=== PATIENT | female | born 1950 | race Caucasian/White ===

== ENCOUNTER → 2022-02-05 12:22 | Outpatient (CLI) | payer MEDICARE, SELFPAY ==
--- NOTE | ~2022-02-05 | MM_ITS ---
EXAMINATION: MM screening alpa BI w jack HISTORY: Screening mammogram TECHNIQUE: Craniocaudal and mediolateral oblique 3-D tomosynthesis images were obtained and synthetic 2-D images were generated. CAD analysis was submitted and interpreted. COMPARISON: 01/31/2019, 06/30/2016, 04/27/2049 bilateral screening mammogram examinations BREAST PARENCHYMAL COMPOSITION: There are scattered areas of fibroglandular density. FINDINGS: There is no evidence of suspicious mass, calcification, or architectural distortion to sugg est malignancy in either breast. There has been no suspicious interval change. IMPRESSION: 1. No mammographic evidence of malignancy. 2. Recommend routine screening mammography in one year. BI-RADS Category 1: Negative Reviewed, dictated and finalized at location A. ETING REP
--- NOTE | ~2022-02-05 | DEXA_ITS ---
Bone Density Report Name: JOEY TOBIN Age: 71 Sex: Female Ethnicity: White Date of : 1950 Indication: postmenopausal; screening for osteoporosis; height loss; Referring Provider: Akosua, Blanca Study: Bone densitometry was performed. Exam Date: February 05, 2022 Accession number: [id number] Bone Density: Region BMD T-score Z-score Classification AP Spine (L2, L3, L4) 1.210 1.2 3.4 Normal Femoral Neck (Right) 0.776 -0.7 1.1 Normal Total Hip (Right) 1.093 1.2 2.7 Normal World Health Organization criteria for BMD impression classify patients as: Normal (T-score at or above -1.0), Osteopenia (T-score between -1.0 and -2.5), or Osteoporosis (T-score at or below -2.5). 10-year Fracture Risk: FRAX not reported because: All T-scores for Spine Total, Hip Total, Femoral Neck at or above -1.0 Previous Exams: Region Exam Age BMD T-score BMD Change BMD Change Date g/cm2 vs Baseline vs Previous AP Spine(L2, L3, L4) 02/05/2022 71 1.210 1.2 0.033 -0.002 01/31/2019 68 1.212 1.2 0.035* 0.027* 04/27/2014 64 1.184 1.0 0.007 0.014 02/27/2009 58 1.171 0.8 -0.007 -0.022 02/22/2007 56 1.193 1.0 0.016 0.016 06/18/2004 54 1.177 0.9 Total Hip(Right) 02/05/2022 71 1.093 1.2 0.100 0.065 01/31/2019 68 1.028 0.7 0.035* 0.056* 04/27/2014 64 0.972 0.2 -0.020 -0.061* 02/27/2009 58 1.034 0.8 0.041* 0.044* 02/22/2007 56 0.990 0.4 -0.003 -0.003 06/18/2004 54 0.993 0.4 *Denotes significance at 95% confidence level, LSC for AP Spine = 0.022 g/cm2, LSC for Total Hip = 0.027 g/cm2 Clinical Information Provided by Patient: Patient maximum height was 62 Menopause Age: 47 Drinks caffeinated beverages Onset of menses at age 13 Number of children 2 Impression: The patient has normal bone mass. No significant bone loss was observed. Discussion: BONE DENSITY IS ABOVE THE MINIMUM DESIRABLE LEVEL AT ALL SKELETAL SITES TESTED. This patient?s bone mineral density is above the minimum desirable level (T-score -1.0 or better) at all sites measured. The patient should follow a healthful lifestyle (good nutrition with adequate calcium and vitamin D, and appropriate weight-bearing exercise). Follow-Up: Consider repeating this study in 5 years or sooner if there is some new clinical indication. R
== END ==
PROVIDERS: PCP Family Medicine; Visit Provider Nurse Practitioner
DX: Z12.31 Encounter for screening mammogram for malignant neoplasm of breast (principal); Z78.0 Asymptomatic menopausal state
CPT/HCPCS: 77063; 77067; 77080

== ENCOUNTER 2022-12-22 13:20 | Emergency (ER) | payer MEDICARE, SELFPAY ==
[2022-12-22 13:30] VITALS: BP 129/81; PULSE 110; RESP 16; TEMP 36.3; O2SAT 97
--- NOTE | 2022-12-22 14:28 | ED.EAR ---
HPI - Ear Problem General Chief complaint: Ear Stated complaint: Right Ear Problem Source: patient Mode of arrival: ambulatory Limitations: no limitations History of Present Illness HPI Narrative: Patient presents for evaluation of which she believes to be a cerumen impaction on the right. She has noted some discomfort in the right ear with hearing loss on the right side for the last week. She denies any tinnitus or drainage from the ear. She has required irrigation of the ears in the past when treated for the same symptoms. She did attempt to irrigate the ear at home with water before coming in. Related Data Allergies Allergy/AdvReac Type Severity Reaction Status Date / Time No Known Allergies Allergy Verified 12/22/22 13:22 Review of Systems Review of Systems: CONSTITUTIONAL: Denies fever, chills, or sweats. EYES: Denies visual changes, redness, or discharge. ENT: Reports right sided ear discomfort and hearing loss. Denies rhinorrhea, congestion, or sore throat CARDIOVASCULAR: Denies chest pain, palpitations, or edema. RESPIRATORY: Denies cough or dyspnea. GASTROINTESTINAL: Denies abdominal pain, nausea, vomiting, or diarrhea. GENITOURINARY: Denies dysuria or hematuria. SKIN: Denies rash or itching. MUSCULOSKELETAL: Denies back pain, joint pain, or myalgia. NEUROLOGIC: Denies headache, numbness, dizziness, or weakness. PSYCHIATRIC: Denies anxiety or depression. [facility] Past Medical History Medical History BMI 33.0-33.9,adult BMI 34.0-34.9,adult BMI 35.0-35.9,adult Hypertension Surgical History Surgical History History of knee surgery Family History Family History Father Hypertension Family history of elevated blood lipids Cerebrovascular accident Mother Sibling History of cancer of gall bladder Sibling No problems noted. 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 Gender identity (if verbalized by the patient): Female Exam Narrative: GENERAL: Well-appearing, well-nourished, and in no acute distress. HEAD: Normocephalic, atraumatic. EYES: PERRLA and EOMI. ENT: Nares clear, no rhinorrhea or epistaxis. Mucous membranes moist. Oropharynx without tonsillar hypertrophy exudate or other lesions. Bilateral ear canals are ceruminous NECK: Supple. No adenopathy or masses. No carotid bruits or JVD CHEST: Clear to auscultation. No respiratory distress. No wheezes rales or rhonchi HEART: Regular rate and rhythm. No murmur heard. Normal peripheral pulses. ABDOMEN: Soft, nontender, nondistended, normal active bowel sounds. EXTREMITIES: Normal range of motion. No edema. SKIN: Warm, dry, no rash. NEURO: No focal deficits. Alert and oriented x3. PSYCH: Normal mood and affect. Course Course Emergency Course: This is a 72-year-old female who presented for evaluation of right ear discomfort and decreased hearing. On physical exam she has evidence of cerumen impaction. Ears were irrigated and pt tolerated well. Follow up with PCP. Will dc with ofloxacin due to erythema in bilateral canals. Go to the ER for worsening symptoms. Pt in agreement with plan of care. Level of Care: Express Care Visit Vital Signs Vital signs: Vital Signs Temperature 36.3 C L 12/22/22 13:30 Pulse Rate 110 H 12/22/22 13:30 Respiratory Rate 16 12/22/22 13:30 Blood Pressure 129/81 12/22/22 13:30 Pulse
== END 2022-12-22 14:30 | disposition home or self-care (01) ==
PROVIDERS: Emergency Provider Nurse Practitioner; PCP Family Medicine
DX: H61.23 Impacted cerumen, bilateral (principal); Z87.891 Personal history of nicotine dependence; I10 Essential (primary) hypertension
CPT/HCPCS: 69210; 99213; G0463

== ENCOUNTER 2024-02-18 12:29 | Emergency (ER) | payer MEDICARE, SELFPAY ==
[2024-02-18 12:37] VITALS: BP 120/71; PULSE 85; RESP 16; TEMP 36.3; O2SAT 99
--- NOTE | 2024-02-18 12:39 | ED.EAR ---
HPI - Ear Problem General Chief complaint: Ear Stated complaint: Right Ear Problem Time Seen by Provider: 02/18/24 12:39 Source: patient Mode of arrival: ambulatory Limitations: no limitations History of Present Illness HPI Narrative: 73-year-old female presents with complaint of decreased hearing to bilateral ears, worse to right ear. Reports history of wax impaction. Has been using Debrox with no relief of symptoms. All systems reviewed and negative except as noted above. Related Data Allergies Allergy/AdvReac Type Severity Reaction Status Date / Time No Known Allergies Allergy Verified 02/18/24 12:39 Review of Systems Review of Systems: CONSTITUTIONAL: Denies fever, chills, or sweats. EYES: Denies visual changes, redness, or discharge. ENT: Denies rhinorrhea, congestion, sore throat, or otalgia. Reports decreased hearing to bilateral ears with clogged sensation. CARDIOVASCULAR: Denies chest pain, palpitations, or edema. RESPIRATORY: Denies cough or dyspnea. GASTROINTESTINAL: Denies abdominal pain, nausea, vomiting, or diarrhea. GENITOURINARY: Denies dysuria or hematuria. SKIN: Denies rash or itching. MUSCULOSKELETAL: Denies back pain, joint pain, or myalgia. NEUROLOGIC: Denies headache, numbness, or weakness. PSYCHIATRIC: Denies anxiety or depression. All other systems reviewed are negative, except as documented in HPI. [facility] Past Medical History Medical History Cervicalgia Dizziness Essential (primary) hypertension Eustachian tube dysfunction Hyperlipidemia Hypertension Impacted cerumen Knee pain Surgical History Surgical History History of knee surgery Family History Family History Father Hypertension Family history of elevated blood lipids Cerebrovascular accident Mother Sibling History of cancer of gall bladder Sibling No problems noted. 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 Gender identity (if verbalized by the patient): Female Comments At time of signature, agree with nursing past medical, surgical, social and family history. There is no relevant family history pertinent to the presenting complaint. Exam Narrative: GENERAL: This is a well-nourished, well-developed patient, in no apparent distress. HEAD: normocephalic, atraumatic. EYES: PERRL. Sclera clear/white. Vision is grossly intact. EARS: External ears normal, Cerumen impaction to bilateral ear canals, after irrigation TMs normal without perforation. Hearing grossly intact. NOSE: External nose normal NECK: Neck supple, non-tender without lymphadenopathy, masses or thyromegaly. CARDIOVASCULAR: Regular rate and rhythm without murmurs, gallops, or rubs. RESPIRATORY: Clear to auscultation. Breath sounds equal bilaterally. No wheezes, rales, or rhonchi. SKIN: warm, Dry, intact with no suspicious lesions or rash, good texture and turgor. NEURO: awake, alert, and oriented to person, place and time. There were no obvious focal neurologic abnormalities. EXTREMITIES: No joint tenderness, effusion, or edema noted. Course Course Level of Care: Express Care Visit Vital Signs Vital signs: Vital Signs Temperature 36.3 C L 02/18/24 12:37 Pulse Rate 85 02/18/24 12:37 Respiratory Rate 16 02/18/24 12:37 Blood Pressure 120/71 02/18/24 12:37 Pulse Oximetry 99 02/18/24 12:37 Oxygen Delivery Room Air 02/18/24 12:37 Temperature 36.3 C L 02/18/24 12:48 Pulse Rate 85 02/18/24 12:48 Respiratory Rate 16 02/18/24 12:48 Blood Pressure 120/71 02/18/24 12:48 Pulse Oximetry 99 02/18/24 12:48 Oxygen Delivery Room Air 02/18/24 12:48 reviewed Procedures Ear Wax Removal Both Ears: Ear Wax Removal Date: 02/18/24 Ear Wax Removal Time: 12:40 Cerumenolytic Used: other ( warm water) Results: Re-examined: cerumen removed completely TM Examination: TM(s) intact, normal appearance Ear Canal Exam: atraumatic Patient Tolerated Procedure: well Complications: no problems Technique: ear canal irrigated Medical Decision Making MDM Narrative Medical decision making narrative: Patient is aware of diagnosis, understands and agrees to treatment plan. Anticipatory guidance given. Patient agrees to follow-up as directed and is aware of reasons to seek care at the emergency department. Portions of this record may have been created with voice recognition software bilateral ear canals irrigated with warm water without complication. Cerumen completely removed and patient voiced that her hearing had improved. Vital Signs Vital Signs: Vital Signs Temperature 36.3 C L 02/18/24 12:37 Pulse Rate 85 02/18/24 12:37 Respiratory Rate 16 02/18/24 12:37 Blood Pressure 120/71 02/18/24 12:37 Pulse Oximetry 99 02/18/24 12:37 Oxygen Delivery Room Air 02/18/24 12:37 Temperature 36.3 C L 02/18/24 12:48 Pulse Rate 85 02/18/24 12:48 Respiratory Rate 16 02/18/24 12:48 Blood Pressure 120/71 02/18/24 12:48 Pulse Oximetry 99 02/18/24 12:48 Oxygen Delivery Room Air 02/18/24 12:48 Discharge Plan Discharge Clinical Impression: Impacted cerumen of both ears Patient Disposition: Home, Self-Care Condition: Stable Instructions: General Patient Instructions Additional Instructions: Cerumen was irrigated from both of her ears using warm water today. Your ear canals and eardrums were normal, no signs of infection. Follow-up with your primary care physician as needed. Prescriptions: No Action cholecalciferol (vitamin D3) 1,250 mcg (50,000 unit) capsule 1,250 mcg PO WEEKLY Qty: 8 0RF rosuvastatin 20 mg tablet 20 mg PO DAILY Qty: 90 1RF lisinopril-hydrochlorothiazide 20-12.5 mg tablet 1 tablet PO BID Qty: 180 1RF Follow-up/Referrals: Anderson Marley MD [Primary Care Provider] - Time of Disposition: 12:55
[2024-02-18 12:48] VITALS: BP 120/71; PULSE 85; RESP 16; TEMP 36.3; O2SAT 99
== END 2024-02-18 12:55 | disposition home or self-care (01) ==
PROVIDERS: Emergency Provider Nurse Practitioner Family; PCP Family Medicine
DX: H61.23 Impacted cerumen, bilateral (principal); Z87.891 Personal history of nicotine dependence; I10 Essential (primary) hypertension; E78.5 Hyperlipidemia, unspecified
CPT/HCPCS: 69209; 99212; G0463

== ENCOUNTER 2024-04-18 14:34 | Emergency (ER) | payer MEDICARE, SELFPAY ==
--- NOTE | ~2024-04-18 | XR_ITS ---
HISTORY: no injury. Pain dorsal aspect foot. COMPARISON: None TECHNIQUE: 4 views of the left foot were performed FINDINGS: No acute fracture or dislocation is appreciated. Significant degenerative disease is noted. The base of the fifth metatarsal is intact. Large calcaneal spur is noted. Soft tissue swelling of the dorsum of the forefoot. IMPRESSION: Soft tissue swelling, without underlying fracture Reviewed, dictated and finalized at location A. [place] ATTORNEY
[2024-04-18 14:40] VITALS: BP 131/66; PULSE 100; RESP 16; TEMP 37; O2SAT 95
--- NOTE | 2024-04-18 14:46 | ED.GENADULT ---
HPI - General Adult General Chief complaint: Extremity Problem,Nontraumatic Stated complaint: left foot pain Time Seen by Provider: 04/18/24 14:47 Source: patient, RN notes reviewed and old records reviewed Mode of arrival: ambulatory Limitations: no limitations History of Present Illness HPI narrative: 74 year old female presents to [facility] care with complaints of pain to the dorsal area of her left foot which is worse with weight bearing for the past 5 days with increased pain for 3 days with no known injury.Patient reports tht she has been taking Tylenol and Ibuprofen for her discomfort with minimal relief. Patient is ambulating with limping gait. MD complaint: left dorsal foot pain Onset (ago): day(s) (5 with increas in past 3 days with no known injury.) Location: left and lower extremity (dorsal foot) Severity scale (1-10): 8 Quality: aching Exacerbating factors: other (mbulation and weight bearing) Treatments prior to arrival: NSAID and other (Tylenol) Related Data Allergies Allergy/AdvReac Type Severity Reaction Status Date / Time No Known Allergies Allergy Verified 04/18/24 14:45 Review of Systems Review of Systems: CONSTITUTIONAL: Denies fever, chills, or sweats. EYES: Denies visual changes, redness, or discharge. ENT: Denies rhinorrhea, congestion, sore throat, or otalgia. CARDIOVASCULAR: Denies chest pain, palpitations, or edema. RESPIRATORY: Denies cough or dyspnea. GASTROINTESTINAL: Denies abdominal pain, nausea, vomiting, or diarrhea. GENITOURINARY: Denies dysuria or hematuria. SKIN: Denies rash or itching. MUSCULOSKELETAL: Denies back pain,positive for pain to dorsal left foot , or myalgia. NEUROLOGIC: Denies headache, numbness, or weakness. PSYCHIATRIC: history of anxiety or depression. All systems reviewed & are unremarkable except as noted in HPI and below PMFSH Past Medical History Medical History Hypertension Eustachian tube dysfunction Dizziness Impacted cerumen Knee pain Cervicalgia Essential (primary) hypertension Hyperlipidemia Surgical History Surgical History (Updated 04/19/24 @ 12:12 by Tami Rainey NP) Status post right foot surgery H/O cervical spine surgery Status post total replacement of left hip History of total left knee replacement History of knee surgery Family History Family History Father Hypertension Family history of elevated blood lipids Cerebrovascular accident Mother Sibling History of cancer of gall bladder Sibling No problems noted. 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 Gender identity (if verbalized by the patient): Female Comments At time of signature, agree with nursing past medical, surgical, social and family history. There is no relevant family history pertinent to the presenting complaint Exam Narrative: GENERAL: Well-appearing, well-nourished, and in no acute distress. HEAD: Normocephalic, atraumatic. EYES: PERRLA and EOMI. ENT: Nares clear, no rhinorrhea or epistaxis. Mucous membranes moist.TM's normal throat pink with no swelling NECK: Supple. no lymphadenopathy CHEST: Clear to auscultation. No respiratory distress.SAO2 95% on room air HEART: Regular rate and rhythm. No murmur heard. Normal peripheral pulses. ABDOMEN: Soft, nontender, nondistended, normal active bowel sounds. EXTREMITIES: Normal range of motion. No edema.Exception noted to pain to dorsal aspect of left foot with weight bearing no acute redness, no known injury, mild swelling of left forefoot, no pain to heel or plantar aspect of left foot. pedal pulse of adequate quality, no tingling or numbness voiced mobility intact. SKIN: Warm, dry, no rash. NEURO: No focal deficits. Alert and oriented x3. Course Course Emergency Course: Patient is aware of diagnosis, understands and agrees to treatment plan.? Anticipatory guidance given.? Patient agrees to follow-up as directed and is aware of reasons to seek care at the emergency department. Portions of this record may have been created with voice recognition software Level of Care: Express Care Visit Vital Signs Vital signs: Vital Signs Temperature 37.0 C 04/18/24 14:40 Pulse Rate 100 04/18/24 14:40 Respiratory Rate 16 04/18/24 14:40 Blood Pressure 131/66 04/18/24 14:40 Pulse Oximetry 95 04/18/24 14:40 Oxygen Delivery Room Air 04/18/24 14:40 Temperature 37.0 C 04/18/24 14:40 Pulse Rate 100 04/18/24 14:40 Respiratory Rate 16 04/18/24 14:40 Blood Pressure 131/66 04/18/24 14:40 Pulse Oximetry 95 04/18/24 14:40 Oxygen Delivery Room Air 04/18/24 14:40 Reviewed Medical Decision Making MDM Narrative Medical decision making narrative: Exam findings and imaging show no acute concerns or changes; patient is non-toxic appearing and is in no distress.? Patient is appropriate for outpatient treatment and follow-up Differential Diagnosis Differential Diagnosis: pain to dorsal aspect of left foot, tendonitis, forefoot soft tissue swelling, osteoarthritis, calcaneal spur Medical Records Medical records reviewed: Yes I reviewed the external patient's medical records. Vital Signs Vital Signs: Vital Signs Temperature 37.0 C 04/18/24 14:40 Pulse Rate 100 04/18/24 14:40 Respiratory Rate 16 04/18/24 14:40 Blood Pressure 131/66 04/18/24 14:40 Pulse Oximetry 95 04/18/24 14:40 Oxygen Delivery Room Air 04/18/24 14:40 Temperature 37.0 C 04/18/24 14:40 Pulse Rate 100 04/18/24 14:40 Respiratory Rate 16 04/18/24 14:40 Blood Pressure 131/66 04/18/24 14:40 Pulse Oximetry 95 04/18/24 14:40 Oxygen Delivery Room Air 04/18/24 14:40 Imaging Data Attestation: I personally reviewed and interpreted this imaging study as follows: My impression: no fracture, soft tissue swelling of forefoot Radiologist's impression: [facility] [address] [place] [address] XRay Report Signed Patient: Rebekah Lafleur : 1950 MR#: [id number] Age: 74 Acct:[id number] Loc: [facility] ADM Date: 04/18/24Attending Dr: Ordering Physician: Tami Rainey APRN Date of Service: 04/18/24 Procedure(s): XR foot LT min 3V Accession Number(s): [id number] cc: Tami Rainey APRN; Anderson Marley MD~ HISTORY: no injury. Pain dorsal aspect foot. COMPARISON: None TECHNIQUE: 4 views of the left foot were performed FINDINGS: No acute fracture or dislocation is appreciated. Significant degenerative disease is noted. The base of the fifth metatarsal is intact. Large calcaneal spur is noted. Soft tissue swelling of the dorsum of the forefoot. IMPRESSION: Soft tissue swelling, without underlying fracture Reviewed, dictated and finalized at location A. [employer] Please be advised this is a medical document. It is intended for [id number] communication. It is written in medical language and may contain unfamiliar abbreviations or verbiage. Medical documents are intended to carry relevant information, facts as evident, and the clinical opinion of the practitioner at the time of the encounter. This report may have been done utilizing a voice recognition system. Attempts have been made to correct errors. However, there may be uncorrected grammatical, spelling, and recognition errors present. The file time of this note does not necessarily represent the time of service. Dictated By: Hazel Smith MD 04/18/24 1515 Signed By: <Electronically signed by Hazel Smith MD in OV> Critical Care Time Critical Care Time Critical Care Time: No Discharge Plan Discharge Clinical Impression: Foot pain, left Patient Disposition: Home, Self-Care Condition: Stable Instructions: Antibiotic Form, Arthralgia (ED) Additional Instructions: Tylenol for lesser pain Ibuprofen regularly for the next 2-3 days for the inflammation Prednisone as prescribed take with food Follow-up with orthopedic surgeon or podiatry per PCP recommendation Follow-up with PCP if further problems or concerns Ice to the area 20-30 minutes 4-6 times a day Elevate above heart Follow-up with PCP for any further concerned If your symptoms persist, change or worsen significantly before you can contact your personal physician then please, without delay, go to the emergency department for further evaluation. Follow-up with PCP in 7-10 days or sooner if needed Follow up with PCP soon in regards to your blood pressure which is elevated above threshold for referral. Blood pressure above 120/80 may indicate pre-hypertension.131/66 Patient Language: Faroese Prescriptions: New prednisone 20 mg tablet 20 mg PO BID Qty: 10 0RF Rx Instructions: take with food am and early pm No Action rosuvastatin 20 mg tablet 20 mg PO DAILY Qty: 90 1RF lisinopril-hydrochlorothiazide 20-12.5 mg tablet 1 tablet PO BID Qty: 180 1RF Follow-up/Referrals: Anderson Marley MD [Primary Care Provider] - Time of Disposition: 15:35 Quality Jose Coma Scale Eyes: Open Verbal: Oriented and Alert Motor: Follows Commands Jose Coma Total Score: 15
--- OUTSIDE RECORDS SUMMARY | 2024-04-20 19:08 | XMS_ITS | Clinical Summary ---
Author Organization [facility] Address [address] [place] [address] Care Team Providers Care Professor Of Geology Name Role Phone Anderson Marley MD Primary Care Provider [phone] Allergies No known active allergies Medications temazepam (RESTORIL) 30 mg capsuleIndicati ons:Insomnia Take 30 mg by mouth nightly as needed 2 0 Active buPROPion SR (WELLBUTRIN SR) 150 mg 12 hr tabletIndicatio ns:Anxiety with Depression Take 150 mg by mouth every morning 0 Active lisinopril-hydr oCHLOROthiazide (ZESTORETIC) 20-12.5 mg per tablet Take 1 tablet by mouth every morning 0 Active atorvastatin (LIPITOR) 10 mg tabletIndicatio ns:hyperlipidem ia Take 10 mg by mouth every morning Active cetirizine (ZyrTEC) 10 mg tablet Take 10 mg by mouth as needed Active aspirin 325 mg enteric coated tabletIndicatio ns:Deep Vein Thrombosis Prevention Take 1 tablet (325 mg total) by mouth 2 (two) times a day 84 tablet 0 Active senna-docusate (PERICOLACE) 8.6-50 mgIndications:c onstipation Take 2 tablets by mouth 2 (two) times a day May increase to 4 tablets twice daily if needed. HOLD medication for diarrhea. 80 tablet 1 0 Active celecoxib (CeleBREX) 100 mg capsuleIndicati ons:Osteoarthri tis,Postoperati ve Acute Pain Take 1 tablet twice daily after surgery until prescription is finished. You should already have this prescription at home. 10 capsule 0 Active oxyCODONE-aceta minophen (PERCOCET) 5-325 mg per tabletIndicatio ns:Pain Take 1-2 tablets by mouth every 4 (four) hours as needed for pain 56 tablet 0 Active Active Problems Problem Noted Date Diagnosed Date Depression 12/28/2019 Hypertension 12/28/2019 Class 1 obesity in adult 12/28/2019 Hyperlipidemia 12/28/2019 At risk for obstructive sleep apnea 12/28/2019 Primary osteoarthritis of left knee 11/27/2019 Overview (11/27/2019): Added automatically from request for surgery [id number] Immunizations Name Administration Dates Next Due Influenza, Quadrivalent, Hig h Dose, Preservative Free, Intrr 12/29/2019 Influenza, Quadrivalent, Spl it, Preservative Free, Intramuscular 01/23/2019 Influenza, Trivalent, High D ose, Split, Preservative Free, Intramuscular 02/09/2018 Surgical History Surgery Date Site/Laterality Comments JOINT REPLACEMENT HIP SURGERY FOOT SURGERY BACK SURGERY Medical History Medical History Date Comments Arthritis Depression Hypercholesteremia Hypertension Allergic rhinitis Family History Medical History Relation Name Comments Arthritis Father Hypertension Father Stroke Father Arthritis Mother Heart disease Mother Hypertension Mother Lung disease Mother Cancer Sister Anesthesia problems Neg Hx Relation Name Status Comments Father Mother Sister Social History Tobacco Use Types Packs/Day Years Used Date Smoking Tobacco: Former Cigarettes Q uit: 1976 Smokeless Tobacco: Never Alcohol Use Standard Drinks/Week Comments Yes 0 (1 standard drink = 0.6 oz pur e alcohol) social (4-5 weekly) Comments No Sex and Gender Information Value Date Recorded Sex Assigned at Not on file 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 Not on file Not on file Not on file Obstetrics History Last Filed Vital Signs Vital Sign Reading Time Taken Comments Blood Pressure 134/67 12/29/2019 7:18 AM CDT Pulse 89 12/29/2019 7:18 AM CDT Temperature 36.4 ??C (97.5 ??F) 12/29/2019 7:18 AM CD T Respiratory Rate 18 12/29/2019 7:18 AM CDT Oxygen Saturation 100% 12/29/2019 7:18 AM CDT Inhaled Oxygen Concentration - - Weight 83.9 kg (185 lb) 12/28/2019 8:36 AM CDT Height 160 cm (5' 3 ) 12/28/2019 8:36 AM CDT Body Mass Index 32.77 12/28/2019 8:36 AM CDT Plan of Treatment Not on file Medical Devices Implanted Type Area Metal Furniture Assembler Device Identifier Shelf Expiration Date Model / Serial / Lot [employer] [id number] Attune Cruciate Retain Cementless Knee Left 6 Narrow Component - Sn/A - [id number] Implanted:Qty: 1 on 12/28/2019 by Rafael Powers MD at [facility] Other - see comments Left: Knee [employer] [id number] 03/28/2027 [id number] / N/A / [id number] [employer] [id number] Attune Cementless Rotate Platform Knee 5 Baseplate Tibial - Sn/A - [id number] Implanted:Qty: 1 on 12/28/2019 by Rafael Powers MD at [facility] Other - see comments Left: Knee [employer] [id number] 02/25/2029 [id number] / N/A / [id number] [employer] [id number] Attune 7mm Cruciate Retaining Rotate Platform Knee 6 Insert - Sn/A - [id number] Implanted:Qty: 1 on 12/28/2019 by Rafael Powers MD at [facility] Other - see comments Left: Knee [employer] [id number] 09/25/2024 [id number] / N/A / [id number] Insurance [employer]ENA MEDICARE [facility] MEDICARE Address: [facility] [id number] [place] [id number] A[employer] MEDICARE [facility] Address: [facility] [id number] [place] [phone] Advance Directives For more information, please contact: [phone] * Full Code (Latest Code Status on File) Date Activated Date Inactivated Comments 12/28/2019 12:42 PM 12/29/2019 2:25 PM Care Teams Professor Of Geology Relationship Specialty Start Date End Date Anderson Marley MD PCP - General Family Medicine 10/06/19
--- OUTSIDE RECORDS SUMMARY | 2024-04-20 19:08 | XMS_ITS | Patient Health Summary ---
Author Organization [facility] [employer] Address [address] [place] [address] Care Team Providers Care Broom Man Name Role Phone Anderson Marley MD Primary Care Provider [phone] Note from [facility],non-owned Affiliates and Associated Physician Practices is amultiple site organization consisting of ambulatory clinics and hospital sitesin [place], [place], [place] and [place]. This disclosure is being madepursuant to the Care Everywhere program and may not contain all information available regarding this patient. Last updated 17.[facility] [employer] Allergies No known active allergies Medications * Be aware that medications may not be up to date on this document. Alwaysverify current medications with the patient. * HYDROCHLOROTHIAZIDE PO * LISINOPRIL PO * escitalopram (LEXAPRO) 10 MG tablet Take 10 mg by mouth once daily * buPROPion HCl (WELLBUTRIN PO) * Citalopram Hydrobromide (CELEXA PO) * TRAMADOL HCL PO * TEMAZEPAM PO Active Problems No known active problems Immunizations * INFLUENZA VACCINE, QUADR. (FLUZONE; FLULAVAL; FLUARIX; AFLURIA QUADRIVALENT; 6MO+), 0.5 ML (IIV4)(Given 01/23/2019) Social History Tobacco Use Types Packs/Day Years Used Date Smoking Tobacco: Never Smokeless Tobacco: Never Sex and Gender Information Value Date Recorded Sex Assigned at Not on file Gender Identity Not on file Sexual Orientation Not on file Last Filed Vital Signs Vital Sign Reading Time Taken Comments Blood Pressure 128/86 07/14/2019 11:43 AM CDT Pulse 79 07/14/2019 11:43 AM CDT Temperature 37 ??C (98.6 ??F) 07/14/2019 11:43 AM CDT Respiratory Rate 16 07/14/2019 11:43 AM CDT Oxygen Saturation 99% 07/14/2019 11:43 AM CDT Inhaled Oxygen Concentration - - Weight 77.1 kg (170 lb) 07/14/2019 11:43 AM CDT Height 157.5 cm (5' 2 ) 07/14/2019 11:43 AM CDT Body Mass Index 31.09 07/14/2019 11:43 AM CDT Procedures * DERMATOPATHOLOGY(Performed 08/16/2013) Results * PATHOLOGY TISSUE FOR DERMATOLOGY (08/16/2013 12:00 AM CDT) Result CASE: [id number] PATIENT: REBEKAH TOBIN PATHOLOGIC DIAGNOSIS: Right upper back: PIGMENTED SEBORRHEIC KERATOSIS NOT PRESENT AT SAMPLED MARGIN CLINICAL DATA: Changing enlarging. GROSS DESCRIPTION: Received is one formalin filled container labeled with the patient's name and designated r upper back. The specimen consists of a [id number] piece of skin. The margin is inked green. The specimen is bisected lengthwise and submitted in 1 cassette. Jar 0. MICROSCOPIC DESCRIPTION: Sections show an acanthotic lesion composed of relatively uniform keratinocytes. There is hyperkeratosis and pseudo horn cysts. ??Pigment is present in the keratinocytes composing this tumor. This lesion is not present at the sampled margin of the specimen. Electronically signed out by Lori Ibarra M.D., PhD. 08/18/2013 12:17:09PM [facility] Comment: Performed at: Dermatopathology Laboratory [facility] - Department of Dermatology [address] [place] [address] [place] [address] Phone number: [phone] FAX: [phone] 08/16/2013 08/17/2013 Anderson aMrley MD LAB - PATHOLOGY/CYTO LOGY ORDERABLES [facility] [address] [place] [address]. [facility] [place] [address], [facility] [phone] Care Teams Broom Man Relationship Specialty Start Date End Date Anderson Marley MD [address] [place] [address] PCP - General Family Medicine 03/27/17
--- OUTSIDE RECORDS SUMMARY | 2024-04-20 19:08 | XMS_ITS | Referral Summary ---
Author Organization [facility] [employer] Address [address] [place] [address] Care Team Providers Care Software Solutions Architect Name Role Phone Anderson Marley MD Primary Care Provider Source Comments [facility] [employer],non-owned Affiliates and Associated Physician Practices is amultiple site organization consisting of ambulatory clinics and hospital sitesin [place], [place], [place] and [place]. This disclosure is being madepursuant to the Care Everywhere program and may not contain all information available regarding this patient. Last updated 17.[facility] [employer] Allergies No known active allergies Medications * Be aware that medications may not be up to date on this document. Alwaysverify current medications with the patient. Medication Sig Dispensed Refills Start Date End Date Status HYDROCHLOROTHIAZIDE PO Ac tive LISINOPRIL PO Active escitalopram (LEXAPRO) 10 MG tablet Take 10 mg by mouth once daily Active buPROPion HCl (WELLBUTRIN PO) Active Citalopram Hydrobromide (CELEXA PO) Active TRAMADOL HCL PO Active TEMAZEPAM PO Active Active Problems No known active problems Immunizations Name Administration Dates Next Due INFLUENZA VACCINE, QUADR. (F LUZONE; FLULAVAL; FLUARIX; AFLURIA QUADRIVALENT; 6MO+), 0.5 ML (IIV4) 01/23/2019 Social History Tobacco Use Types Packs/Day Years [...] Mass Index 31.09 07/14/2019 11:43 AM CDT Plan of Treatment Not on file Care Teams Software Solutions Architect Relationship Specialty Start Date End Date Anderson Marley MD [address] [place] [address] PCP - General Family Medicine 03/27/17
--- OUTSIDE RECORDS SUMMARY | 2024-04-20 19:08 | XMS_ITS | Clinical Summary ---
Author Organization [facility] [employer] Address [address] [place] [address] Care Team Providers Care Electroencephalographic Technologist Name Role Phone Anderson Marley MD Primary Care Provider [phone] Source Comments [facility] [employer],non-owned Affiliates and Associated Physician Practices is amultiple site organization consisting of ambulatory clinics and hospital sitesin [place], [place] and [place]. This disclosure is being madepursuant to the Care Everywhere program and may not contain all information available regarding this patient. Last updated 17.[facility] [employer] Allergies No known active allergies Medications * [...] 07/14/2019 11:43 AM CDT Plan of Treatment Health Maintenance Due Date Last Done Comments BONE DENSITY TESTING 1950 COLOGUARD (AGES 45-75) - COL ON CA SCREENING 1950 COLON MONITORING 1950 COLONOSCOPY - COLON CA SCREENING 1950 CT COLONOGRAPHY - COLON CA SCREENING 1950 Colorectal Cancer Screening 1950 FIT - COLON CA SCREENING 1950 FLEX SIG - COLON CA SCREENING 1950 LIPID TESTING 1950 MAMMOGRAM 1950 HEPATITIS C SCREENING 04/11/1970 DTAP/TDAP/TD VACCINES (1 - Tdap) 1971 PNEUMOCOCCAL VACCINE 50+ (1 of 1 - PCV) 2002 ZOSTER VACCINE (1 of 2) 2002 SCREENING FOR DIABETES 07/14/2019 COVID-19 VACCINE ( - 2023-2 5 season) 2023 INFLUENZA VACCINE (#1) 2023 01/23/2019 DEPRESSION SCREENING 03/29/2024 Respiratory Syncytial Virus (RSV) Vaccine Pt: or over 60 yrs (1 - 1-dose 75+ series) 2027 HEPATITIS B VACCINE Aged Out No longe r eligible based on patient's age to complete this topic HIB VACCINE Aged Out No longer eligi ble based on patient's age to complete this topic HPV VACCINE Aged Out No longer eligi ble based on patient's age to complete this topic MENINGOCOCCAL (Group B) VACCINE Aged Out No longer eligible based on patient's age to complete this topic MENINGOCOCCAL VACCINE Aged Out No ariadna kirstin eligible based on patient's age to complete this topic Care Teams Electroencephalographic Technologist Relationship Specialty Start Date End Date Anderson Marley MD [address] [place] [address] PCP - General Family Medicine 03/27/17
--- OUTSIDE RECORDS SUMMARY | 2024-04-20 19:08 | XMS_ITS | Referral Summary ---
Author Organization [facility] Address [address] [place] [address] Care Team Providers Care Learning Developer Name Role Phone Anderson Marley MD Primary Care Provider [phone] Allergies No known active allergies Medications temazepam [...] (11/27/2019): Added automatically from request for surgery [id number] Immunizations Name Administration Dates Next Due Influenza, Quadrivalent, Hig h Dose, Preservative Free, Intrr 12/29/2019 Influenza, Quadrivalent, Spl it, Preservative Free, Intramuscular 01/23/2019 Influenza, Trivalent, High D ose, Split, Preservative Free, Intramuscular 02/09/2018 Social History Tobacco Use Types Packs/Day Years Used Date Smoking Tobacco: Former Cigarettes Q uit: 1977 Smokeless Tobacco: Never Alcohol Use Standard Drinks/Week Comments Yes 0 (1 standard drink = 0.6 oz pur e alcohol) social (4-5 weekly) Comments No Sex and Gender Information Value Date Recorded Sex Assigned at Not on file 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 Device Identifier Shelf Expiration Date Model / Serial / Lot [employer]uy [employer] [id number] Attune Cruciate Retain Cementless Knee Left 6 Narrow Component - Sn/A - [id number] Implanted:Qty: 1 on 12/28/2019 by Rafael Powers MD at [facility] Other - see comments Left: Knee [employer] [id number] 03/28/2027 [id number] / N/A / [id number] [employer] [id number] Attune Cementless Rotate Platform Knee 5 Baseplate Tibial - Sn/A - [id number] Implanted:Qty: 1 on 12/28/2019 by Rafael Powers MD at [facility] Other - see comments Left: Knee [employer] [id number] 02/25/2029 [id number] / N/A / [id number] [employer] [id number] Attune 7mm Cruciate Retaining Rotate Platform Knee 6 Insert - Sn/A - [id number] Implanted:Qty: 1 on 12/28/2019 by Rafael Powers MD at [facility] Other - see comments Left: Knee [employer] [id number] 09/25/2024 [id number] / N/A / [id number] Insurance [facility] Advance Directives For more information, please contact: [phone] * Full Code (Latest Code Status on File) Date Activated Date Inactivated Comments 12/28/2019 12:42 PM 12/29/2019 2:25 PM Care Teams Learning Developer Relationship Specialty Start Date End Date Anderson Marley MD PCP - General Family Medicine 10/06/19
--- OUTSIDE RECORDS SUMMARY | 2024-04-20 19:08 | XMS_ITS | Continuity of Care Document ---
Author Organization [facility] Address [address] [place] [address] Phone Care Team Providers Care Building Associate Name Role Phone Administrative, Provider Unavailable Unavail [...] Diagnoses Date Provider Providers Copied on Encounter [facility], [address] [place], [place] [address], [id number], tel:[phone] [facility] No Information 200 8 Administrative Provider. [address] [place] [address], [facility] [address], [place], [place], [id number], [place]. tel:[phone] [facility], [address], [place], [place], [id number], [place] tel:[phone] [email or web address] No Information 8 No Information Referring Provider: Syd Waller [address], [place], [address]. tel:[phone] [email or web address], [address], [place], [place], [id number], [place] tel:[phone] [email or web address] No Information 8 No Information [facility], [address], [place], [place], [id number], [place] tel:[phone] [email or web address] No Information 8 No Information [facility], [address], [place], [place], [id number], [place] tel:[phone] [facility] No Information 8 No Information Office/outpa tient visit,[facility], [facility], [address], [place], [place], [id number], [place] tel:[phone] [email or web address] No Information 8 No Information Office/outpa tient visit,[facility], [facility], [address], [place], [place], [id number], [place] tel:[phone] [email or web address] No Information 8 No Information Family History [...]
== END 2024-04-18 15:40 | disposition home or self-care (01) ==
PROVIDERS: Emergency Provider Registered Nurse; PCP Family Medicine
DX: M79.672 Pain in left foot (principal); Z87.891 Personal history of nicotine dependence; I10 Essential (primary) hypertension; E78.5 Hyperlipidemia, unspecified
CPT/HCPCS: 73630; 99213; G0463

== ENCOUNTER 2024-05-05 11:36 | Outpatient (CLI) | payer MEDICARE, SELFPAY ==
--- NOTE | ~2024-05-05 | DEXA_ITS ---
Bone Density Report Name: JOEY TOBIN Age: 74 Sex: Female Ethnicity: White Date of : 1950 Indication: postmenopausal; screening for osteoporosis; height loss; prior fracture; Referring Provider: Echo Bynum Study: Bone densitometry was performed. Exam Date: May 05, 2024 Accession number: [id number] Bone Density: Region BMD T-score Z-score Classification AP Spine(L1-L4) 1.271 2.0 4.3 Normal Femoral Neck (Right) 0.758 -0.8 1.1 Normal Total Hip (Right) 1.048 0.9 2.5 Normal World Health Organization criteria for BMD impression classify patients as: Normal (T-score at or above -1.0), Osteopenia (T-score between -1.0 and -2.5), or Osteoporosis (T-score at or below -2.5). 10-year Fracture Risk: FRAX not reported because: All T-scores for Spine Total, Hip Total, Femoral Neck at or above -1.0 Prior hip or vertebral fracture Clinical Information Provided by Patient: Have had a previous hip or vertebral fracture Has had a low trauma fracture Has used the following medications: Vitamin D Patient maximum height was 63 Menopause Age: 52 Onset of menses at age 13 Number of children 2 Impression: The patient has normal bone mass. The patient has risk factors, including: previous fracture. Discussion: INCREASED RISK OF FRACTURE DUE TO HISTORY OF FRACTURE. The patient's previous fracture puts the patient at high risk of a future fracture. In untreated patients, the risk of osteoporotic fracture increases approximately two-fold for each 1.0 SD decrease in T-score. Low bone density is not the only risk factor for fracture; also consider factors such as patient's age, frailty or poor health, risk of falling, risk of injury, previous osteoporotic fracture, family history of osteoporosis, cigarette smoking, low body weight, etc. Not everyone with a low trauma fracture has osteoporosis; osteomalacia and other metabolic bone disorders should also be considered. Patients who have osteoporosis should be evaluated for specific diseases and conditions (secondary causes) that may cause or contribute to bone loss and fracture risk. National Osteoporosis Foundation (NOF) recommends pharmacologic intervention for patients with a prior hip or vertebral fracture regardless of BMD T-score. The patient should follow a healthful lifestyle (good nutrition with adequate calcium and vitamin D, and appropriate weight-bearing exercise). Follow-Up: Consider a repeat BMD and Vertebral Fracture Assessment (VFA) exam in 2 years or sooner if medically necessary, to reassess this patient's status. Reported by: NEHA on 05/05/2024 12:05:00 PM. Reviewed, dictated and finalized at location ALidya RIVERA
--- NOTE | ~2024-05-05 | MM_ITS ---
EXAMINATION: MM screening alpa BI w jack HISTORY: Screening mammogram TECHNIQUE: Craniocaudal and mediolateral oblique 3-D tomosynthesis images were obtained and synthetic 2-D images were generated. CAD analysis was submitted and interpreted. COMPARISON: 02/05/2022, 01/31/2019 BREAST PARENCHYMAL COMPOSITION:Not Dense. There are scattered areas of fibroglandular density. FINDINGS: No suspicious mass, calcification, or architectural distortion are identified in either ashley ast to suggest malignancy. There has been no suspicious interval change. IMPRESSION: No mammographic evidence of malignancy. Recommend routine screening mammography in one year. BI-RADS Category 1: Negative Reviewed, dictated and finalized at location . ER PROGRAM DIRECTOR
--- OUTSIDE RECORDS SUMMARY | 2024-05-05 12:04 | XMS_ITS | Clinical Summary ---
Author Organization [facility] Address [address] [place] [address] Care Team Providers Care Corner Trimmer Operator Name Role Phone Anderson Marley MD Primary Care Provider [phone] Source Comments [facility],non-owned Affiliates and Associated Physician Practices is amultiple site organization consisting of ambulatory clinics and hospital sitesin [place], [place], [place] and [place]. This disclosure is being madepursuant to the Care Everywhere program and may not contain all information available regarding this patient. Last updated 17.[facility] Allergies No known active allergies Medications * [...] 79 07/14/2019 11:43 AM CDT Temperature 37 C (98.6 F) 07/14/2019 11:43 AM CDT Respiratory Rate 16 [...] age to complete this topic Care Teams Corner Trimmer Operator Relationship Specialty Start Date End Date Anderson Marley MD [address] [place] [address] PCP - General Family Medicine 03/27/17
--- OUTSIDE RECORDS SUMMARY | 2024-05-05 12:04 | XMS_ITS | Patient Health Summary ---
Author Organization [facility] Address [address] [place] [address] Care Team Providers Care Parts Room Clerk Name Role Phone Anderson Marley MD Primary Care Provider [phone] Note from [facility],non-owned Affiliates and Associated Physician Practices is amultiple site organization consisting of ambulatory clinics and hospital sitesin [place], [place], [place]. This disclosure is being madepursuant to the Care Everywhere program and may not contain all information available regarding this patient. 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 GROSS DESCRIPTION: Received is one formalin filled container labeled with the patient's name and designated r upper back. The specimen consists of a [id number] piece of skin. The margin is inked green. The specimen is bisected lengthwise and submitted in 1 cassette. Jar 0. MICROSCOPIC DESCRIPTION: Sections show an acanthotic lesion composed of relatively uniform keratinocytes. There is hyperkeratosis and pseudo horn cysts. Pigment is present in the keratinocytes composing this tumor. This lesion is not present at the sampled margin of the specimen. Electronically signed out by Lori Ibarra M.D., PhD. 08/18/2013 12:17:09PM [facility] Comment: Performed at: Dermatopathology Laboratory [facility] Department of Dermatology [address] [place] [address] [place] [address] Phone number: [phone] FAX: [phone] 08/16/2013 08/17/2013 Anderson Marley MD LAB - PATHOLOGY/CYTO LOGY ORDERABLES [facility] [address] [place] [address]. [facility] [place] [address], [facility] [phone] Care Teams Parts Room Clerk Relationship Specialty Start Date End Date Anderson Marley MD [address] [place] [address] PCP - General Family Medicine 03/27/17
--- OUTSIDE RECORDS SUMMARY | 2024-05-05 12:04 | XMS_ITS | Clinical Summary ---
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 Not on file Not on file Not on file Obstetrics History Last Filed Vital Signs Vital Sign Reading Time Taken Comments Blood Pressure 134/67 12/29/2019 7:18 AM CDT Pulse 89 12/29/2019 7:18 AM CDT Temperature 36.4 C (97.5 F) 12/29/2019 7:18 AM CDT Respiratory Rate 18 12/29/2019 7:18 AM CDT Oxygen Saturation 100% 12/29/2019 7:18 AM CDT Inhaled Oxygen Concentration - - Weight 83.9 kg (185 lb) 12/28/2019 8:36 AM CDT Height 160 cm (5' 3 ) 12/28/2019 8:36 AM CDT Body Mass Index 32.77 12/28/2019 8:36 AM CDT Plan of Treatment Not on file Medical Devices Implanted Type Area Central Scheduler Device Identifier Shelf Expiration Date Model / Serial / Lot Depuy [employer] [id number] Attune Cruciate Retain Cementless Knee Left 6 Narrow Component - Sn/A - [id number] Implanted:Qty: 1 on 12/28/2019 by Rafael Powers MD at [facility] Other - see comments Left: Knee [employer] [id number] 03/28/2027 [id number] / N/A / [id number] [employer] [id number] Attune Cementless Rotate Platform Knee 5 Baseplate Tibial - Sn/A - [id number] Implanted:Qty: 1 on 12/28/2019 by Rafael Powers MD at [facility] Other - see comments Left: Knee [employer] [id number] 02/25/2029 [id number] / N/A / [id number] [employer] [id number] Attune 7mm Cruciate Retaining Rotate Platform Knee 6 Insert - Sn/A - [id number] Implanted:Qty: 1 on 12/28/2019 by Rafael Powers MD at [facility] Other - see comments Left: Knee [employer] [id number] 09/25/2024 [id number] / N/A / [id number] Insurance [employer] MEDICARE [employer] MEDICARE Advance Directives For more information, please contact: [phone] * Full Code (Latest Code Status on File) Date Activated Date Inactivated Comments 12/28/2019 12:42 PM 12/29/2019 2:25 PM Care Teams Acquisition Consultant Relationship Specialty Start Date End Date Anderson Marley MD PCP - General Family Medicine 10/06/19
--- OUTSIDE RECORDS SUMMARY | 2024-05-05 12:04 | XMS_ITS | Referral Summary ---
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 Gender Identity Not on file Sexual Orientation [...] on file Medical Devices Implanted Type Area Early Childhood Assistant Device Identifier Shelf Expiration Date Model / Serial / Lot Depuy [employer] [id number] Attune Cruciate Retain Cementless Knee Left 6 Narrow Component - Sn/A - [id number] Implanted:Qty: 1 on 12/28/2019 by Rafael Powers MD at [facility] Other - see comments Left: Knee [employer] [id number] 03/28/2027 [id number] / N/A / [id number] [employer] [id number] Attune Cementless Rotate Platform Knee 5 Baseplate Tibial - Sn/A - [id number] Implanted:Qty: 1 on 12/28/2019 by Rafael Powers MD at [facility] Other - see comments Left: Knee [employer] [id number] 02/25/2029 [id number] / N/A / [id number] [employer] [id number] Attune 7mm Cruciate Retaining Rotate Platform Knee 6 Insert - Sn/A - [id number] Implanted:Qty: 1 on 12/28/2019 by Rafael Powers MD at [facility] Other - see comments Left: Knee [employer] [id number] 09/25/2024 [id number] / N/A / [id number] Insurance [facility] MEDICARE AETNA MEDICARE Advance Directives For more information, please contact: [phone] * Full Code (Latest Code Status on File) Date Activated Date Inactivated Comments 12/28/2019 12:42 PM 12/29/2019 2:25 PM Care Teams Newspaper Delivery Counselor Relationship Specialty Start Date End Date Anderson Marley MD PCP - General Family Medicine 10/06/19
--- OUTSIDE RECORDS SUMMARY | 2024-05-05 12:04 | XMS_ITS | Referral Summary ---
Author Organization [facility] Address [address] [place] [address] Care Team Providers Care Professor Of Literature Name Role Phone Anderson Marley MD Primary Care Provider [phone] Source Comments [facility],non-owned Affiliates and Associated Physician Practices is amultiple site organization consisting of ambulatory clinics and hospital sitesin [place], [place], [place] and [place]. This disclosure is being madepursuant to the Care Everywhere program and may not contain all information available regarding this patient. Last updated 17.[facility] Allergies No known active allergies Medications * [...] of Treatment Not on file Care Teams Professor Of Literature Relationship Specialty Start Date End Date Anderson Marley MD [address] [place] [address] PCP - General Family Medicine 03/27/17
--- OUTSIDE RECORDS SUMMARY | 2024-05-05 12:04 | XMS_ITS | Continuity of Care Document ---
Author Organization [facility] Address [address] [place] [address] Phone Care Team Providers Care Carbon Sequestration Plant Engineer Name Role Phone Administrative, Provider Unavailable Unavail [...] Diagnoses Date Provider Providers Copied on Encounter [facility], [address] [place], [place] [address], [id number], tel:[phone] [facility] No Information 200 8 Administrative Provider. [address] [place] [address], [facility] [address], [place], [place], [id number], [place]. tel:[phone] [facility], [address], [place], [place], [address], [place] tel:[phone] [facility] No Information 8 No Information Referring Provider: Syd Waller [address], [place], [address]. tel:[phone] [facility], [address], [place], [place], [address], [place] tel:[phone] [facility] No Information 8 No Information [facility], [address], [place], [place], [address], [place] tel:[phone] [facility] No Information 8 No Information [facility], [address], [place], [place], [id number], [place] tel:[phone] [facility] No Information 8 No Information Office/outpa tient visit,[facility], [address], [place], [place], [address], [place] tel:[phone] [facility] No Information 8 No Information Office/outpa tient visit,[facility], [facility], [address], [place], [place], [id number], [place] tel:[phone] [facility] No Information 8 No Information Family History Family Member Type Diagnosis Age At Onset No Information Payers Payer name Insurance type Covered libertarian ID Authoriza tion(s) No Information Social History [...]
== END 2024-05-05 11:37 | disposition home or self-care (01) ==
LOC: CHSIMG 11:37
PROVIDERS: PCP Family Medicine; Visit Provider Nurse Practitioner Women's Health
DX: Z12.31 Encounter for screening mammogram for malignant neoplasm of breast (principal); Z78.0 Asymptomatic menopausal state
CPT/HCPCS: 77063; 77067; 77080

== ENCOUNTER 2025-01-29 11:40 | Emergency (ER) | payer MEDICARE, SELFPAY ==
--- OUTSIDE RECORDS SUMMARY | 2008-01-09 18:00 | XMS_ITS | Continuity of Care Document ---
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 Name Role Phone Administrative, Provider Unavailable Unavail able Procedures Procedure Date Xray Copy Postop followup visit X-ray exam of pelvis, 1-2 views 008 Postop followup visit Postop followup visit X-ray exam of hip, 1 view X-ray exam of pelvis, 1-2 views 008 Arthroscopy, unlisted procedure 008 Hip arthroscopy, surg debrid/shave Hip arthroscopy, surg w/synovectomy Office/outpatient visit,est, mod 2007 Office/outpatient visit,new, mod 2007 X-ray exam of pelvis, 1-2 views 008 X-ray exam of hip, 1 view Advance Directives Directive Yes / No Effective Date File Name No Information Encounters Encounter Description Practice Location Reason(s) For Visit Diagnoses Date Provider Providers Copied on Encounter [facility], [address] [place], [place] [address], [id number], tel:[phone] [facility] No Information 200 8 Administrative Provider. [address] [place] [address], [facility] [address], [place], [place], [id number], [place]. tel:[phone] [facility], [address], [place], [place], [id number], [place] tel:[phone] [facility] No Information 8 No Information Referring Provider: Syd Waller [address], [place], [address]. tel:[phone] [facility], [address], [place], [place], [id number], [place] tel:[phone] [facility] No Information 8 No Information [facility], [address], [place], [place], [id number], [place] tel:[phone] [facility] No Information 8 No Information [facility], [address], [place], [place], [id number], [place] tel:[phone] [facility] No Information 8 No Information Office/outpa [facility]ient visit,[facility], [facility], [address], [place], [place], [id number], [place] tel:[phone] [facility] No Information 8 No Information Office/outpa [facility]ient visit,[facility], [facility], [address], [place], [place], [id number], [place] tel:[phone] [facility] No Information 8 No Information Family History Family Member Type Diagnosis Age At Onset No Information Payers Payer name Insurance type Covered constitution party ID Authoriza tion(s) No Information Social History Type Description Quantity Date Captured Comments Sex Female Smoking Status No Information Chief Complaint And Reason For Visit No Information Reason For Referral Reason For Referral No Information History Of Present Illness Encounter Date Complaint History Of Prese nt Illness No Information Functional Status Date Functional Assessmen t No Information Instructions Date Instruction Additional Infor mation No Information Assessments Type Assessment Date No Information Patient Care Teams Name Effective Dates (start - stop) Status Members No Information
--- OUTSIDE RECORDS SUMMARY | 2008-01-09 18:00 | XMS_ITS | Continuity of Care Document ---
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 [address] [place] [address], [facility] [address], [place], [place], [id number], [place]. tel:[phone] [facility], [address], [place], [place], [id number], [place] tel:[phone] [facility] No Information 8 No Information Referring Provider: Syd Waller [address], [place], [address]. tel:[phone] [facility], [address], [place], [place], [id number], [place] tel:[phone] [facility] No Information 8 No Information [facility], [address], [place], [place], [id number], [place] tel:[phone] [facility] No Information 8 No Information [facility], [address], [place], [place], [id number], [place] tel:[phone] [facility] No Information 8 No Information Office/outpa tient visit,[facility], [facility] [place] [facility], [address], [place], [place], [id number], [place] tel:[phone] [facility] No Information 8 No Information Office/outpa tient visit,[facility], [facility] [place] [facility], [address], [place], [place], [id number], [place] tel:[phone] [facility] No Information 8 No Information Family History Family Member Type Diagnosis Age At Onset No Information Payers Payer name Insurance type Covered green party ID Authoriza tion(s) No Information Social [...]
--- NOTE | 2025-01-29 11:41 | ED_ITS ---
HPI - Ear Problem General Chief complaint: Ear Stated complaint: right ear clogged Time Seen by Provider: 01/29/25 11:55 Source: patient, RN notes reviewed and old records reviewed Mode of arrival: ambulatory Limitations: no limitations History of Present Illness HPI Narrative: 74-year-old female presents to the [facility] with her right ear clogged, decreased hearing to her left. States the right ear started 3 days ago, left ear started today. States that she does use and [id number] ear drops. Related Data Allergies Allergy/AdvReac Type Severity Reaction Status Date / Time No Known Allergies Allergy Verified 01/29/25 11:47 Review of Systems Review of Systems: All systems reviewed & are unremarkable except as noted in HPI and below Constitutional: Constitutional: Reports no additional constitutional complaints ENT: Reports as per HPI Cardiovascular: Cardiovascular: Reports no additional cardiovascular complaints, Denies chest pain and Denies dyspnea Respiratory: Respiratory: Reports no additional respiratory complaints, Denies chest congestion, Denies cough and Denies dyspnea Musculoskeletal: Musculoskeletal: Reports no additional musculoskeletal complaints Integumentary/Breasts: Skin/Breast: Reports system reviewed and no additional complaints, except as docu PMFSH Past Medical History Medical History (Updated 01/29/25 @ 12:14 by Lupe Putnam APRN) Hypertension Eustachian tube dysfunction Dizziness Impacted cerumen Knee pain Cervicalgia Essential (primary) hypertension Hyperlipidemia Surgical History Surgical History (Updated 04/19/24 @ 12:12 by Tami Rainey APRN) Status post right foot surgery H/O cervical spine surgery Status post total replacement of left hip History of total left knee replacement History of knee surgery Family History Family History Father Hypertension Family history of elevated blood lipids Cerebrovascular accident Mother Sibling History of cancer of gall bladder Sibling No problems noted. 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 Gender identity (if verbalized by the patient): Female Comments At the time of my signature, I reviewed and agree with the nursing past medical, surgical, social, and family history. There is no relevant family history pertinent to the patient complaint. Exam Const: General: cooperative, healthy appearing, comfortable, no acute distress, well developed, alert and well nourished Nutritional Appearance: well nourished Orientation/consciousness: patient oriented x3 Limitations: no limitations HENMT: Head: normal to inspection Ears: external ears normal and Abnormal EAC present cerumen impaction bilateral Face and sinus: normal facial exam Mouth: Yes Normal oral and palatal mucosa present, Yes lip normal, Yes tongue normal and Yes moist mucous membranes Throat: posterior oropharynx normal, uvula midline and no uvular edema Eyes: General: appearance normal, both eyes and all related structures Alignment and Position: alignment normal Neck: Neck: normal visual inspection, full ROM, no lymphadenopathy and no meningeal signs Chest: Chest palpation & inspection: normal inspection of the chest Resp: Effort & Inspection: normal respiratory effort and able to speak in complete sentences Cardio: Rate: regular rate Skin: General skin exam: normal color and no rashes or lesions noted Neuro: General: patient oriented x3, gait normal, moves all extremities and no meningeal signs Cognition (Neuro): normal cognition Speech: normal speech Gait exam (Neuro): Normal gait present Extrem: General: normal to inspection, full ROM, capillary refill normal and normal gait Psych: Appearance: grossly normal and well kempt Mental Status: mental status grossly normal Speech and movement: Normal speech and movement present and Clear speech present Affect: normal affect Attitude: cooperative Course Course Level of Care: Express Care Visit Vital Signs Vital signs: Vital Signs Temperature 98.0 F 01/29/25 11:45 Pulse Rate 90 01/29/25 11:45 Respiratory Rate 20 01/29/25 11:45 Blood Pressure 187/90 H 01/29/25 11:45 Pulse Oximetry 97 01/29/25 11:45 Oxygen Delivery Room Air 01/29/25 11:45 Temperature 98.0 F 01/29/25 11:45 Pulse Rate 90 01/29/25 11:45 Respiratory Rate 20 01/29/25 11:45 Blood Pressure 162/76 H 01/29/25 12:17 Pulse Oximetry 97 01/29/25 11:45 Oxygen Delivery Room Air 01/29/25 11:45 Reviewed Procedures Ear Wax Removal Both Ears: Ear Wax Removal Date: 01/29/25 Ear Wax Removal Time: 12:05 Cerumenolytic Used: other ( peroxide and water) Results: Re-examined: cerumen removed completely TM Examination: TM(s) intact, normal appearance Ear Canal Exam: atraumatic Patient Tolerated Procedure: well Complications: no problems Technique: ear canal irrigated and ear canal curetted Additional Comments: Procedure explained, verbal consent obtained. Able to irrigate in use curette to remove wax. TM is nontraumatic, intact. Patient tolerated procedure well Medical Decision Making MDM Narrative Medical decision making narrative: patient sitting comfortably in exam room. Patient is nontoxic, vitals stable. Patient presents with decreased hearing, cerumen impaction. ears irrigated with peroxide water, use curette patient tolerated procedure well patient is appropriate for outpatient treatment with close follow Discharge instructions reviewed with patient, as well as provided in writing per nursing staff. The instructions also include specific and strict return/GO TO THE ER as well as f/u information. All questions have been answered, and the patient deny any further questions with discharge and discharge plan. Some parts of this dictation were generated by voice recognition software and may contain typographical and/or grammatical inaccuracies. Differential Diagnosis Differential Diagnosis: cerumen impaction, otitis media Medical Records Medical records reviewed: Yes I reviewed the external patient's medical records. Vital Signs Vital Signs: Vital Signs Temperature 98.0 F 01/29/25 11:45 Pulse Rate 90 01/29/25 11:45 Respiratory Rate 20 01/29/25 11:45 Blood Pressure 187/90 H 01/29/25 11:45 Pulse Oximetry 97 01/29/25 11:45 Oxygen Delivery Room Air 01/29/25 11:45 Temperature 98.0 F 01/29/25 11:45 Pulse Rate 90 01/29/25 11:45 Respiratory Rate 20 01/29/25 11:45 Blood Pressure 162/76 H 01/29/25 12:17 Pulse Oximetry 97 01/29/25 11:45 Oxygen Delivery Room Air 01/29/25 11:45 Reviewed Lab Data Lab results reviewed: Yes I reviewed the patient's lab results. Labs: Reviewed Critical Care Time Critical Care Time Critical Care Time: No Discharge Plan Discharge Clinical Impression: Bilateral impacted cerumen, Elevated blood pressure reading Patient Disposition: Home Condition: Stable Instructions: Antibiotic Form, Carbamide Peroxide (Into the ear) Additional Instructions: today your blood pressure was 187/90. Please follow-up with your primary care provider to have this rechecked within 2 weeks You had Cerumen (EAR wax impaction). Do not use Q-tips or put anything in the ear. This can damage the ear. Instead , use Debrox or ear wax remover. Place 5 drops in ear after a hot shower and place a warm compress over the ear for 20 minutes. alternate doing this every 3-4 days. It will break up the wax gently. Do not use too much pressure. Once you have all of the cerumen out of your ears, you may do preventative treatment to prevent this from happening again. Use 5 drops once weekly after a hot shower. Patient Language: German Prescriptions: No Action rosuvastatin 20 mg tablet 20 mg PO DAILY Qty: 90 1RF lisinopril-hydrochlorothiazide 20-12.5 mg tablet 1 tablet PO BID Qty: 180 1RF Follow-up/Referrals: Anderson Marley MD [Primary Care Provider, Family Practice] - 2 Weeks Clinical Impression: Elevated blood pressure reading; Bilateral impacted cerumen Time of Disposition: 12:15
[2025-01-29 11:45] VITALS: BP 187/90; PULSE 90; RESP 20; TEMP 36.7; O2SAT 97
[2025-01-29 12:17] VITALS: BP 162/76
[2025-01-29] MEDS: HYDROGEN PEROXIDE 3% SOLN(*SP) 473 ML BOTTLE 120 ML IRRIGATION (12:22)
--- OUTSIDE RECORDS SUMMARY | 2025-01-29 13:13 | XMS_ITS | Clinical Summary ---
Author Organization [facility] Address [address] [place] [address] Care Team Providers Care Welder Machine Operator Name Role Phone Anderson Marley MD Primary Care Provider [phone] Source Comments [facility],non-owned Affiliates and Associated Physician Practices is amultiple site organization consisting of ambulatory clinics and hospital sitesin [place], [place], [place] and [place]. This disclosure is being madepursuant to the Care Everywhere program and may not contain all information available regarding this patient. Last updated 17.[facility] Allergies No known active allergies Medications * Be aware that medications may not be up to date on this document. Alwaysverify current medications with the patient. HYDROCHLOROTHIAZI DE PO Active LISINOPRIL PO Active escitalopram (LEXAPRO) 10 MG tablet Take 10 mg by mouth once daily Active buPROPion HCl (WELLBUTRIN PO) Acti ve Citalopram Hydrobromide (CELEXA PO) Active TRAMADOL HCL PO Acti ve TEMAZEPAM PO Active Active Problems No known active problems Immunizations Immunization Administration Dates Next Due INFLUENZA VACCINE, QUADR. 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 Gender Identity Not on file Sexual Orientation [...] 11:43 AM CDT Height 157.5 cm (5' 2) 07/14/2019 11:43 AM CDT Body Mass Index [...] of 2) 2002 SCREENING FOR DIABETES 07/14/2019 DEPRESSION SCREENING 03/29/2024 COVID-19 VACCINE (1 - 2023-2 5 season) 2024 INFLUENZA VACCINE (#1) 2024 01/23/2019 Respiratory Syncytial Virus (RSV) Vaccine Pt: or [...] to complete this topic MENINGOCOCCAL (Group B) VACC INE SHARED DECISION-MAKING Aged Out No longer eligibl e based on patient's age to complete this topic MENINGOCOCCAL GROUPS A/C/Y/W VACCINE Aged Out No longer eligible b ased on patient's age to complete this topic Insurance AET[employer] Care Teams Welder Machine Operator Relationship Specialty Start Date End Date Anderson Marley MD [address] [place] [address] PCP - General Family Medicine 03/27/17
--- OUTSIDE RECORDS SUMMARY | 2025-01-29 13:13 | XMS_ITS | Clinical Summary ---
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 Gender Identity Not on file Sexual Orientation [...] 8:36 AM CDT Height 160 cm (5' 3) 12/28/2019 8:36 AM CDT Body Mass Index 32.77 12/28/2019 8:36 AM CDT Plan of Treatment Not on file Medical Devices Implanted Type Area Corn Shucker Device Identifier Shelf Expiration Date Model / Serial / Lot [employer] [id number] Attune Cruciate Retain Cementless Knee Left 6 Narrow Component - Sn/A - [id number] Implanted:Qty: 1 on 12/28/2019 by Rafael Powers MD at [facility] Other - see comments Left: Knee [employer] [id number] 03/28/2027 [id number] / N/A / [id number] [employer] [id number] Attune Cementless Rotate Platform Knee 5 Baseplate Tibial - Sn/A - [id number] Implanted:Qty: 1 on 12/28/2019 by Rafael Powers MD at [facility] Other - see comments Left: Knee [employer] [id number] 02/25/2029 [id number] / N/A / [id number] [employer] [id number] Attune 7mm Cruciate Retaining Rotate Platform Knee 6 Insert - Sn/A - [id number] Implanted:Qty: 1 on 12/28/2019 by Rafael Powers MD at [facility] Other - see comments Left: Knee [employer] [id number] 09/25/2024 [id number] / N/A / [id number] Insurance [employer] [facility] AETNA MEDICARE Advance Directives For more information, please contact: [phone] * Full Code (Latest Code Status on File) Date Activated Date Inactivated Comments 12/28/2019 12:42 PM 12/29/2019 2:25 PM Care Teams Timber Packer Relationship Specialty Start Date End Date Anderson Marley MD PCP - General Family Medicine 10/06/19
== END 2025-01-29 12:23 | disposition home or self-care (01) ==
PROVIDERS: Emergency Provider Nurse Practitioner; PCP Family Medicine
DX: H61.23 Impacted cerumen, bilateral (principal); I10 Essential (primary) hypertension; E78.5 Hyperlipidemia, unspecified; Z96.642 Presence of left artificial hip joint; Z87.891 Personal history of nicotine dependence; Z96.652 Presence of left artificial knee joint
CPT/HCPCS: 69210; 99212; A9270; G0463